=== PATIENT | female | born 1960 | race Caucasian/White ===

== ENCOUNTER 2021-08-26 10:22 | Inpatient (IN) | payer OTHER ==
[2021-08-26] MEDS ORDERED: ONDANSETRON *ODT* 4 MG TABLET SL PRN (10:41)
[2021-08-26] MEDS ORDERED: DICYCLOMINE HCL 10 MG CAPSULE PO PRN (10:41)
[2021-08-26] MEDS ORDERED: LOPERAMIDE HCL 2 MG CAPSULE PO PRN (10:41)
[2021-08-26] MEDS ORDERED: MAG HYDROX/AL HYDROX/SIMETH 30 ML UNIT-DOSE CUP PO PRN (10:41)
[2021-08-26] MEDS ORDERED: ACETAMINOPHEN 325 MG TABLET (FP) PO PRN (10:41)
[2021-08-26] MEDS ORDERED: BENZOCAINE/MENTHOL (CHLORASEPTIC ) LOZENGE MM PRN (10:41)
[2021-08-26] MEDS ORDERED: MAGNESIUM HYDROX 2400MG/30ML ORAL SUSPENSION 30 ML CUP PO PRN (10:41)
[2021-08-26] MEDS ORDERED: NICOTINE 10 MG CARTRIDGE (INHALER) IH PRN (10:41)
[2021-08-26] MEDS ORDERED: BISMUTH SUBSALICYLATE 262 MG/15 ML BTL PO PRN (10:41)
[2021-08-26] MEDS ORDERED: METHOCARBAMOL 500 MG TABLET PO PRN (10:41)
[2021-08-26] MEDS ORDERED: IBUPROFEN 400 MG TABLET (FP) PO PRN (10:41)
[2021-08-26] MEDS ORDERED: diazePAM 5 MG TABLET PO PRN (10:41)
[2021-08-26] MEDS ORDERED: MAGNESIUM CITRATE 300 ML BOTTLE PO PRN (10:41)
[2021-08-26 10:53] VITALS: BMI 24.3
[2021-08-26] MEDS: NICOTINE 14 MG/24 HOURS TOPICAL PATCH TD SCH (13:21)
[2021-08-26] MEDS: hydrOXYzine PAMOATE 25 MG CAPSULE (FP) PO SCH ×3 (13:21→22:06)
[2021-08-26] MEDS: PRENATAL VITAMINS W/ FOLIC ACID TABLET (FP) PO SCH (13:21)
[2021-08-26] MEDS: diazePAM 5 MG TABLET PO SCH ×3 (13:23→22:03)
[2021-08-26 15:13] LABS: ALBUMIN 3.8 g/dl (3.4-5.0); BLOOD UREA NITROGEN 20.6 mg/dL (7-18)
[2021-08-26 15:16] LABS: HEMATOCRIT 32.5 % (32.4-45.2); MCH 29.5 pg (25.7-33.7); MCHC 33.9 g/dl (32.0-36.0); MEAN PLT VOLUME 9.1 fl (7.5-11.1); PLATELET COUNT 268 10^3/uL (134-434); RBC 3.74 M/mm3 (3.60-5.2); RDW 16.7 % (11.6-15.6); WHITE BLOOD COUNT 4.9 K/mm3 (4.0-10.0)
[2021-08-26 15:17] LABS: BILIRUBIN,TOTAL 0.2 mg/dL (0.2-1)
[2021-08-26 15:18] LABS: TOT PROT 7.2 g/dl (6.4-8.2)
[2021-08-26] MEDS: ACETAMINOPHEN 325 MG TABLET (FP) PO PRN (17:48)
[2021-08-26] MEDS ORDERED: LURASIDONE HCL 40 MG TABLET PO SCH (22:00)
[2021-08-26] MEDS: THIAMINE HCL 100 MG TABLET (FP) PO SCH (22:03)
[2021-08-26] MEDS: MELATONIN 5 MG TABLETS PO SCH (22:03)
[2021-08-26] MEDS: DIVALPROEX SODIUM 500 MG TABLET E.C. PO SCH (22:03)
[2021-08-27] MEDS: hydrOXYzine PAMOATE 25 MG CAPSULE (FP) PO SCH ×5 (06:05→21:58)
[2021-08-27] MEDS ORDERED: methaDONE HCL 10 MG TABLET ONE (06:07)
[2021-08-27] MEDS ORDERED: methaDONE HCL 40 MG DISPERSABLE TABLET ONE (06:08)
[2021-08-27] MEDS: diazePAM 5 MG TABLET PO SCH ×4 (06:08→22:00)
[2021-08-27] MEDS ORDERED: methaDONE HCL 40 MG DISPERSABLE TABLET PO SCH (10:00)
[2021-08-27] MEDS ORDERED: busPIRone HCL 10 MG TABLET (FP) PO SCH (10:00)
[2021-08-27] MEDS: PRENATAL VITAMINS W/ FOLIC ACID TABLET (FP) PO SCH (10:52)
[2021-08-27] MEDS: NICOTINE 14 MG/24 HOURS TOPICAL PATCH TD SCH (10:53)
[2021-08-27] MEDS: DIVALPROEX SODIUM 500 MG TABLET E.C. PO SCH (10:56)
[2021-08-27] MEDS: THIAMINE HCL 100 MG TABLET (FP) PO SCH (21:58)
[2021-08-27] MEDS: MELATONIN 5 MG TABLETS PO SCH (21:58)
[2021-08-28] MEDS ORDERED: methaDONE HCL 10 MG TABLET ONE (04:50)
[2021-08-28] MEDS ORDERED: methaDONE HCL 40 MG DISPERSABLE TABLET ONE (04:50)
[2021-08-28] MEDS: diazePAM 5 MG TABLET PO SCH ×3 (05:59→22:13)
[2021-08-28] MEDS: hydrOXYzine PAMOATE 25 MG CAPSULE (FP) PO SCH ×5 (05:59→22:12)
[2021-08-28] MEDS: PRENATAL VITAMINS W/ FOLIC ACID TABLET (FP) PO SCH (10:19)
[2021-08-28] MEDS: NICOTINE 14 MG/24 HOURS TOPICAL PATCH TD SCH (10:19)
[2021-08-28] MEDS: MELATONIN 5 MG TABLETS PO SCH (22:12)
[2021-08-28] MEDS: THIAMINE HCL 100 MG TABLET (FP) PO SCH (22:12)
[2021-08-29] MEDS ORDERED: methaDONE HCL 10 MG TABLET ONE (04:18)
[2021-08-29] MEDS ORDERED: methaDONE HCL 40 MG DISPERSABLE TABLET ONE (04:19)
[2021-08-29] MEDS: hydrOXYzine PAMOATE 25 MG CAPSULE (FP) PO SCH ×5 (05:45→22:10)
[2021-08-29] MEDS: diazePAM 5 MG TABLET PO SCH ×2 (05:47→17:30)
[2021-08-29] MEDS: PRENATAL VITAMINS W/ FOLIC ACID TABLET (FP) PO SCH (10:13)
[2021-08-29] MEDS: NICOTINE 14 MG/24 HOURS TOPICAL PATCH TD SCH (10:14)
[2021-08-29] MEDS: MELATONIN 5 MG TABLETS PO SCH (22:10)
[2021-08-29] MEDS: THIAMINE HCL 100 MG TABLET (FP) PO SCH (22:10)
[2021-08-29] MEDS: ACETAMINOPHEN 325 MG TABLET (FP) PO PRN (22:11)
[2021-08-30] MEDS ORDERED: methaDONE HCL 10 MG TABLET ONE (04:55)
[2021-08-30] MEDS ORDERED: methaDONE HCL 40 MG DISPERSABLE TABLET ONE (04:55)
[2021-08-30] MEDS ORDERED: diazePAM 5 MG TABLET PO ONE (06:00)
[2021-08-30] MEDS: hydrOXYzine PAMOATE 25 MG CAPSULE (FP) PO SCH ×2 (06:03→10:36)
[2021-08-30 08:51] VITALS: BP 125/83; PULSE 100; TEMP 95.9
[2021-08-30] MEDS: PRENATAL VITAMINS W/ FOLIC ACID TABLET (FP) PO SCH (10:36)
[2021-08-30] MEDS: NICOTINE 14 MG/24 HOURS TOPICAL PATCH TD SCH (10:36)
[2021-08-30] MEDS ORDERED: ALBUTEROL SO4 HFA INHALER IH PRN (13:21)
[2021-08-30 16:08] LABS: SARS-CoV-2 NAA Not Detected (Not Detected)
== END 2021-08-30 12:08 | disposition home or self-care (01) | DRG 773 ==
LOC: YASAS 10:22 → Y3N 11:45
PROVIDERS: ADMIT Allergy & Immunology; ATTEND Allergy & Immunology
PROC: HZ2ZZZZ Detoxification Services for Substance Abuse Treatment (ICD-10-PCS; principal; 2021-08-26)
DX: F10.230 Alcohol dependence with withdrawal, uncomplicated (principal); F11.20 Opioid dependence, uncomplicated; F14.20 Cocaine dependence, uncomplicated; F17.210 Nicotine dependence, cigarettes, uncomplicated; F31.9 Bipolar disorder, unspecified; J45.909 Unspecified asthma, uncomplicated; M54.50 Low back pain, unspecified; G89.29 Other chronic pain; Z98.84 Bariatric surgery status; Z98.890 Other specified postprocedural states
CPT/HCPCS: 36415; 80053; 80164; 85027; 86780; 87811; 93005; 93010; C9803-CS; U0003; U0005

== ENCOUNTER 2021-10-26 10:52 | Inpatient (IN) | payer OTHER ==
[2021-10-26 11:29] VITALS: BMI 22.6
[2021-10-26] MEDS ORDERED: ACETAMINOPHEN 325 MG TABLET (FP) PO PRN ×2 (11:54)
[2021-10-26] MEDS ORDERED: DICYCLOMINE HCL 10 MG CAPSULE PO PRN (11:54)
[2021-10-26] MEDS ORDERED: MAGNESIUM CITRATE 300 ML BOTTLE PO PRN (11:54)
[2021-10-26] MEDS ORDERED: IBUPROFEN 400 MG TABLET (FP) PO PRN (11:54)
[2021-10-26] MEDS ORDERED: MAG HYDROX/AL HYDROX/SIMETH 30 ML UNIT-DOSE CUP PO PRN (11:54)
[2021-10-26] MEDS ORDERED: LOPERAMIDE HCL 2 MG CAPSULE PO PRN (11:54)
[2021-10-26] MEDS ORDERED: MAGNESIUM HYDROX 2400MG/30ML ORAL SUSPENSION 30 ML CUP PO PRN (11:54)
[2021-10-26] MEDS ORDERED: BENZOCAINE/MENTHOL (CHLORASEPTIC ) LOZENGE MM PRN (11:54)
[2021-10-26] MEDS ORDERED: METHOCARBAMOL 500 MG TABLET PO PRN (11:54)
[2021-10-26] MEDS ORDERED: BISMUTH SUBSALICYLATE 262 MG/15 ML BTL PO PRN (11:54)
[2021-10-26] MEDS ORDERED: IBUPROFEN 600 MG TABLET (FP) PO PRN (11:54)
[2021-10-26] MEDS ORDERED: ONDANSETRON *ODT* 4 MG TABLET SL PRN (11:54)
[2021-10-26] MEDS: diazePAM 5 MG TABLET PO SCH ×3 (13:11→22:23)
[2021-10-26] MEDS: PRENATAL VITAMINS W/ FOLIC ACID TABLET (FP) PO SCH (13:12)
[2021-10-26] MEDS: NICOTINE 21 MG/24 HOURS TOPICAL PATCH TD SCH (13:13)
[2021-10-26] MEDS: hydrOXYzine PAMOATE 25 MG CAPSULE (FP) PO SCH ×3 (13:13→22:23)
[2021-10-26 15:19] LABS: CALCIUM 8.8 mg/dL (8.5-10.1); HEMOGLOBIN 12.4 GM/dL (10.7-15.3); MCH 28.7 pg (25.7-33.7); MCHC 32.6 g/dl (32.0-36.0); MEAN PLT VOLUME 9.4 fl (7.5-11.1); PLATELET COUNT 258 10^3/uL (134-434); RBC 4.32 M/mm3 (3.60-5.2); RDW 16.2 % (11.6-15.6); WHITE BLOOD COUNT 5.4 K/mm3 (4.0-10.0)
[2021-10-26 15:20] LABS: ALBUMIN 3.9 g/dl (3.4-5.0); BLOOD UREA NITROGEN 13.6 mg/dL (7-18)
[2021-10-26 15:23] LABS: CREATININE 1.1 mg/dL (0.55-1.3)
[2021-10-26 15:24] LABS: BILIRUBIN,TOTAL 0.4 mg/dL (0.2-1); TOT PROT 7.6 g/dl (6.4-8.2)
[2021-10-26] MEDS: THIAMINE HCL 100 MG TABLET (FP) PO SCH (22:23)
[2021-10-26] MEDS: DIVALPROEX SODIUM 500 MG TABLET E.C. PO SCH (22:23)
[2021-10-26] MEDS: MELATONIN 5 MG TABLETS PO SCH (22:23)
[2021-10-26] MEDS: busPIRone HCL 5 MG TABLET PO SCH (22:31)
[2021-10-26] MEDS: LURASIDONE HCL 40 MG TABLET PO SCH (22:31)
[2021-10-27] MEDS: hydrOXYzine PAMOATE 25 MG CAPSULE (FP) PO SCH ×5 (06:12→23:25)
[2021-10-27] MEDS: diazePAM 5 MG TABLET PO SCH ×4 (06:12→22:09)
[2021-10-27] MEDS ORDERED: methaDONE HCL 10 MG TABLET PO SCH (07:45)
[2021-10-27] MEDS ORDERED: methaDONE HCL 40 MG DISPERSABLE TABLET ONE (08:22)
[2021-10-27] MEDS ORDERED: methaDONE HCL 10 MG TABLET ONE (08:22)
[2021-10-27] MEDS: busPIRone HCL 5 MG TABLET PO SCH ×2 (10:03→22:08)
[2021-10-27] MEDS: PRENATAL VITAMINS W/ FOLIC ACID TABLET (FP) PO SCH (10:03)
[2021-10-27] MEDS: DIVALPROEX SODIUM 500 MG TABLET E.C. PO SCH ×2 (10:03→22:08)
[2021-10-27] MEDS: NICOTINE 10 MG CARTRIDGE (INHALER) IH PRN (10:05)
[2021-10-27] MEDS: NICOTINE 21 MG/24 HOURS TOPICAL PATCH TD SCH (10:19)
[2021-10-27] MEDS: diazePAM 5 MG TABLET PO PRN (13:43)
[2021-10-27 15:38] LABS: HIV INTERPRETATION NEGATIVE (NEGATIVE)
[2021-10-27] MEDS: THIAMINE HCL 100 MG TABLET (FP) PO SCH (22:08)
[2021-10-27] MEDS: MELATONIN 5 MG TABLETS PO SCH (22:08)
[2021-10-27] MEDS: LURASIDONE HCL 40 MG TABLET PO SCH (23:51)
[2021-10-28] MEDS ORDERED: methaDONE HCL 10 MG TABLET ONE (04:30)
[2021-10-28] MEDS ORDERED: methaDONE HCL 40 MG DISPERSABLE TABLET ONE (04:30)
[2021-10-28] MEDS: hydrOXYzine PAMOATE 25 MG CAPSULE (FP) PO SCH ×2 (07:04→10:10)
[2021-10-28] MEDS: diazePAM 5 MG TABLET PO SCH ×3 (07:04→22:07)
[2021-10-28] MEDS: DIVALPROEX SODIUM 500 MG TABLET E.C. PO SCH ×2 (10:09→22:06)
[2021-10-28] MEDS: PRENATAL VITAMINS W/ FOLIC ACID TABLET (FP) PO SCH (10:10)
[2021-10-28] MEDS: diazePAM 5 MG TABLET PO PRN ×2 (10:10→17:40)
[2021-10-28] MEDS: NICOTINE 10 MG CARTRIDGE (INHALER) IH PRN (10:17)
[2021-10-28] MEDS: NICOTINE 21 MG/24 HOURS TOPICAL PATCH TD SCH (10:36)
[2021-10-28] MEDS ORDERED: hydrOXYzine PAMOATE 25 MG CAPSULE (FP) PO PRN (11:45)
[2021-10-28] MEDS ORDERED: ALBUTEROL SO4 HFA INHALER IH PRN (11:45)
[2021-10-28] MEDS: busPIRone HCL 5 MG TABLET PO SCH (12:01)
[2021-10-28] MEDS: CARIPRAZINE HCL 6 MG PO SCH (21:19)
[2021-10-28] MEDS: THIAMINE HCL 100 MG TABLET (FP) PO SCH (22:05)
[2021-10-28] MEDS: LURASIDONE HCL 40 MG TABLET PO SCH (22:06)
[2021-10-28] MEDS: busPIRone HCL 10 MG TABLET (FP) PO SCH (22:06)
[2021-10-28] MEDS: MELATONIN 5 MG TABLETS PO SCH (22:07)
[2021-10-29] MEDS ORDERED: methaDONE HCL 10 MG TABLET ONE (05:19)
[2021-10-29] MEDS ORDERED: methaDONE HCL 40 MG DISPERSABLE TABLET ONE (05:19)
[2021-10-29] MEDS: diazePAM 5 MG TABLET PO SCH ×2 (05:44→17:29)
[2021-10-29] MEDS: busPIRone HCL 10 MG TABLET (FP) PO SCH ×3 (07:17→22:30)
[2021-10-29] MEDS: DIVALPROEX SODIUM 500 MG TABLET E.C. PO SCH ×2 (10:30→22:30)
[2021-10-29] MEDS: PRENATAL VITAMINS W/ FOLIC ACID TABLET (FP) PO SCH (10:30)
[2021-10-29] MEDS: diazePAM 5 MG TABLET PO PRN (10:31)
[2021-10-29] MEDS: NICOTINE 21 MG/24 HOURS TOPICAL PATCH TD SCH (11:07)
[2021-10-29] MEDS: CARIPRAZINE HCL 6 MG PO SCH (11:09)
[2021-10-29] MEDS ORDERED: LURASIDONE HCL 20 MG, LURASIDONE HCL 40 MG PO SCH (22:00)
[2021-10-29] MEDS ORDERED: LURASIDONE HCL 40 MG TABLET PO SCH (22:00)
[2021-10-29] MEDS: THIAMINE HCL 100 MG TABLET (FP) PO SCH (22:30)
[2021-10-29] MEDS: MELATONIN 5 MG TABLETS PO SCH (22:32)
[2021-10-30] MEDS ORDERED: methaDONE HCL 10 MG TABLET ONE (04:21)
[2021-10-30] MEDS ORDERED: methaDONE HCL 40 MG DISPERSABLE TABLET ONE (04:21)
[2021-10-30] MEDS: busPIRone HCL 10 MG TABLET (FP) PO SCH ×2 (05:04→13:27)
[2021-10-30] MEDS ORDERED: diazePAM 5 MG TABLET PO ONE (06:00)
[2021-10-30] MEDS: DIVALPROEX SODIUM 500 MG TABLET E.C. PO SCH (10:54)
[2021-10-30] MEDS: NICOTINE 21 MG/24 HOURS TOPICAL PATCH TD SCH (10:54)
[2021-10-30] MEDS: PRENATAL VITAMINS W/ FOLIC ACID TABLET (FP) PO SCH (10:55)
[2021-10-30 13:25] VITALS: BP 105/63; PULSE 73; TEMP 98.9
== END 2021-10-30 15:25 | disposition other institution (70) | DRG 773 ==
LOC: YASAS 10:52 → Y3N 11:57
PROVIDERS: ADMIT Allergy & Immunology; ATTEND Surgery
PROC: HZ2ZZZZ Detoxification Services for Substance Abuse Treatment (ICD-10-PCS; principal; 2021-10-26)
DX: F10.230 Alcohol dependence with withdrawal, uncomplicated (principal); F11.20 Opioid dependence, uncomplicated; F14.20 Cocaine dependence, uncomplicated; F17.210 Nicotine dependence, cigarettes, uncomplicated; F31.9 Bipolar disorder, unspecified; J45.909 Unspecified asthma, uncomplicated; M54.50 Low back pain, unspecified; G89.29 Other chronic pain; R73.9 Hyperglycemia, unspecified
CPT/HCPCS: 36415; 80053; 80164; 85027; 86780; 87389; 87811; C9803-CS; U0003; U0005

== ENCOUNTER 2021-10-30 09:11 | Inpatient (IN) | payer OTHER ==
[2021-10-30] MEDS ORDERED: IBUPROFEN 400 MG TABLET (FP) PO PRN (18:42)
[2021-10-30] MEDS ORDERED: guaiFENesin 200 MG/10 ML 10 ML UNIT-DOSE CUPS PO PRN (18:42)
[2021-10-30] MEDS ORDERED: BENZOCAINE/MENTHOL (CHLORASEPTIC ) LOZENGE MM PRN (18:42)
[2021-10-30] MEDS ORDERED: LOPERAMIDE HCL 2 MG CAPSULE PO PRN (18:42)
[2021-10-30] MEDS ORDERED: P-EPHED 60MG/TRIPROLIDI 2.5MG TABLET PO PRN (18:42)
[2021-10-30] MEDS ORDERED: MAGNESIUM CITRATE 300 ML BOTTLE PO PRN (18:42)
[2021-10-30] MEDS: THIAMINE HCL 100 MG TABLET (FP) PO SCH (21:05)
[2021-10-30] MEDS: MELATONIN 5 MG TABLETS PO SCH (21:05)
[2021-10-30] MEDS: DIVALPROEX SODIUM 500 MG TABLET E.C. PO SCH (21:06)
[2021-10-31] MEDS ORDERED: MELATONIN 5 MG TABLETS PO ONE (00:45)
[2021-10-31] MEDS ORDERED: methaDONE HCL 10 MG TABLET ONE ×2 (04:02→08:51)
[2021-10-31] MEDS ORDERED: methaDONE HCL 40 MG DISPERSABLE TABLET ONE ×2 (04:03→08:52)
[2021-10-31] MEDS ORDERED: methaDONE 40 MG, methaDONE 30 MG PO SCH (06:00)
[2021-10-31] MEDS ORDERED: methaDONE HCL 10 MG TABLET PO ONE (08:27)
[2021-10-31] MEDS ORDERED: methaDONE 40 MG, methaDONE 30 MG PO ONE (08:40)
[2021-10-31] MEDS: PRENATAL VITAMINS W/ FOLIC ACID TABLET (FP) PO SCH (09:40)
[2021-10-31] MEDS: NICOTINE 21 MG/24 HOURS TOPICAL PATCH TD SCH (09:41)
[2021-10-31] MEDS: DIVALPROEX SODIUM 500 MG TABLET E.C. PO SCH ×2 (09:41→21:06)
[2021-10-31] MEDS: NICOTINE 10 MG CARTRIDGE (INHALER) IH PRN ×2 (09:41→12:56)
[2021-10-31] MEDS: busPIRone HCL 5 MG TABLET PO SCH ×2 (13:31→21:06)
[2021-10-31] MEDS: THIAMINE HCL 100 MG TABLET (FP) PO SCH (21:06)
[2021-10-31] MEDS: LURASIDONE HCL 20 MG TABLET PO SCH (21:06)
[2021-10-31] MEDS: MELATONIN 5 MG TABLETS PO SCH (21:07)
[2021-11-01] MEDS ORDERED: methaDONE HCL 10 MG TABLET ONE (04:01)
[2021-11-01] MEDS ORDERED: methaDONE HCL 40 MG DISPERSABLE TABLET ONE (04:02)
[2021-11-01] MEDS: busPIRone HCL 5 MG TABLET PO SCH ×3 (05:54→21:46)
[2021-11-01] MEDS ORDERED: methaDONE HCL 10 MG TABLET PO SCH (06:00)
[2021-11-01] MEDS: NICOTINE 21 MG/24 HOURS TOPICAL PATCH TD SCH (10:06)
[2021-11-01] MEDS: PRENATAL VITAMINS W/ FOLIC ACID TABLET (FP) PO SCH (10:06)
[2021-11-01] MEDS: NICOTINE 10 MG CARTRIDGE (INHALER) IH PRN (10:07)
[2021-11-01] MEDS: DIVALPROEX SODIUM 500 MG TABLET E.C. PO SCH ×2 (10:07→21:46)
[2021-11-01] MEDS: MELATONIN 5 MG TABLETS PO SCH (21:46)
[2021-11-01] MEDS: THIAMINE HCL 100 MG TABLET (FP) PO SCH (21:46)
[2021-11-01] MEDS: LURASIDONE HCL 20 MG TABLET PO SCH (21:47)
[2021-11-02] MEDS ORDERED: methaDONE HCL 40 MG DISPERSABLE TABLET ONE (04:12)
[2021-11-02] MEDS ORDERED: methaDONE HCL 10 MG TABLET ONE (04:12)
[2021-11-02] MEDS: busPIRone HCL 5 MG TABLET PO SCH ×3 (06:03→21:15)
[2021-11-02] MEDS: NICOTINE 10 MG CARTRIDGE (INHALER) IH PRN ×2 (07:00→10:19)
[2021-11-02] MEDS: DIVALPROEX SODIUM 500 MG TABLET E.C. PO SCH ×2 (10:18→21:15)
[2021-11-02] MEDS: NICOTINE 21 MG/24 HOURS TOPICAL PATCH TD SCH (10:18)
[2021-11-02] MEDS: PRENATAL VITAMINS W/ FOLIC ACID TABLET (FP) PO SCH (10:18)
[2021-11-02] MEDS: LURASIDONE HCL 20 MG TABLET PO SCH (21:15)
[2021-11-02] MEDS: THIAMINE HCL 100 MG TABLET (FP) PO SCH (21:15)
[2021-11-02] MEDS: MELATONIN 5 MG TABLETS PO SCH (21:15)
[2021-11-03] MEDS ORDERED: methaDONE HCL 10 MG TABLET ONE (03:19)
[2021-11-03] MEDS ORDERED: methaDONE HCL 40 MG DISPERSABLE TABLET ONE (03:19)
[2021-11-03] MEDS: busPIRone HCL 5 MG TABLET PO SCH ×3 (05:42→21:09)
[2021-11-03] MEDS: NICOTINE 21 MG/24 HOURS TOPICAL PATCH TD SCH (10:41)
[2021-11-03] MEDS: PRENATAL VITAMINS W/ FOLIC ACID TABLET (FP) PO SCH (10:41)
[2021-11-03] MEDS: DIVALPROEX SODIUM 500 MG TABLET E.C. PO SCH ×2 (10:42→21:08)
[2021-11-03] MEDS: ACETAMINOPHEN 325 MG TABLET (FP) PO PRN (10:43)
[2021-11-03] MEDS: METHOCARBAMOL 500 MG TABLET PO PRN (21:08)
[2021-11-03] MEDS: THIAMINE HCL 100 MG TABLET (FP) PO SCH (21:08)
[2021-11-03] MEDS: LURASIDONE HCL 20 MG TABLET PO SCH (21:09)
[2021-11-03] MEDS: MELATONIN 5 MG TABLETS PO SCH (21:10)
[2021-11-03] MEDS: NICOTINE 10 MG CARTRIDGE (INHALER) IH PRN (21:10)
[2021-11-04] MEDS ORDERED: methaDONE HCL 40 MG DISPERSABLE TABLET ONE (04:08)
[2021-11-04] MEDS ORDERED: methaDONE HCL 10 MG TABLET ONE (04:08)
[2021-11-04] MEDS: busPIRone HCL 5 MG TABLET PO SCH ×3 (05:42→21:05)
[2021-11-04] MEDS: NICOTINE 21 MG/24 HOURS TOPICAL PATCH TD SCH (10:33)
[2021-11-04] MEDS: PRENATAL VITAMINS W/ FOLIC ACID TABLET (FP) PO SCH (10:33)
[2021-11-04] MEDS: DIVALPROEX SODIUM 500 MG TABLET E.C. PO SCH ×2 (10:33→21:05)
[2021-11-04] MEDS: NICOTINE 10 MG CARTRIDGE (INHALER) IH PRN (10:35)
[2021-11-04] MEDS: THIAMINE HCL 100 MG TABLET (FP) PO SCH (21:05)
[2021-11-04] MEDS: LURASIDONE HCL 20 MG TABLET PO SCH (21:06)
[2021-11-04] MEDS: METHOCARBAMOL 500 MG TABLET PO PRN (21:07)
[2021-11-04] MEDS: MELATONIN 5 MG TABLETS PO SCH (21:43)
[2021-11-05] MEDS ORDERED: methaDONE HCL 40 MG DISPERSABLE TABLET ONE (04:01)
[2021-11-05] MEDS ORDERED: methaDONE HCL 10 MG TABLET ONE (04:01)
[2021-11-05] MEDS: busPIRone HCL 5 MG TABLET PO SCH ×3 (05:54→21:47)
[2021-11-05] MEDS: NICOTINE 10 MG CARTRIDGE (INHALER) IH PRN (06:40)
[2021-11-05] MEDS: DIVALPROEX SODIUM 500 MG TABLET E.C. PO SCH ×2 (10:33→21:47)
[2021-11-05] MEDS: PRENATAL VITAMINS W/ FOLIC ACID TABLET (FP) PO SCH (10:34)
[2021-11-05] MEDS: ACETAMINOPHEN 325 MG TABLET (FP) PO PRN (10:34)
[2021-11-05] MEDS: NICOTINE 21 MG/24 HOURS TOPICAL PATCH TD SCH (11:05)
[2021-11-05] MEDS: MELATONIN 5 MG TABLETS PO SCH (21:47)
[2021-11-05] MEDS: LURASIDONE HCL 20 MG TABLET PO SCH (21:48)
[2021-11-05] MEDS: THIAMINE HCL 100 MG TABLET (FP) PO SCH (21:49)
[2021-11-05] MEDS: hydrOXYzine PAMOATE 25 MG CAPSULE (FP) PO PRN (21:50)
[2021-11-06] MEDS ORDERED: methaDONE HCL 10 MG TABLET ONE (03:26)
[2021-11-06] MEDS ORDERED: methaDONE HCL 40 MG DISPERSABLE TABLET ONE (03:26)
[2021-11-06] MEDS: busPIRone HCL 5 MG TABLET PO SCH ×3 (06:00→22:11)
[2021-11-06] MEDS: NICOTINE 10 MG CARTRIDGE (INHALER) IH PRN ×2 (06:18→10:42)
[2021-11-06] MEDS: NICOTINE 21 MG/24 HOURS TOPICAL PATCH TD SCH (10:41)
[2021-11-06] MEDS: PRENATAL VITAMINS W/ FOLIC ACID TABLET (FP) PO SCH (10:41)
[2021-11-06] MEDS: DIVALPROEX SODIUM 500 MG TABLET E.C. PO SCH ×2 (10:41→22:11)
[2021-11-06] MEDS: THIAMINE HCL 100 MG TABLET (FP) PO SCH (22:11)
[2021-11-06] MEDS: MELATONIN 5 MG TABLETS PO SCH (22:11)
[2021-11-06] MEDS: LURASIDONE HCL 20 MG TABLET PO SCH (22:12)
[2021-11-06] MEDS: hydrOXYzine PAMOATE 25 MG CAPSULE (FP) PO PRN (22:12)
[2021-11-06] MEDS: METHOCARBAMOL 500 MG TABLET PO PRN (22:13)
[2021-11-07] MEDS ORDERED: methaDONE HCL 10 MG TABLET ONE (03:26)
[2021-11-07] MEDS ORDERED: methaDONE HCL 40 MG DISPERSABLE TABLET ONE (03:27)
[2021-11-07] MEDS: busPIRone HCL 5 MG TABLET PO SCH ×3 (05:41→21:18)
[2021-11-07] MEDS: NICOTINE 21 MG/24 HOURS TOPICAL PATCH TD SCH (10:31)
[2021-11-07] MEDS: DIVALPROEX SODIUM 500 MG TABLET E.C. PO SCH ×2 (10:31→21:18)
[2021-11-07] MEDS: PRENATAL VITAMINS W/ FOLIC ACID TABLET (FP) PO SCH (10:31)
[2021-11-07 15:48] LABS: URINE APPEARANCE CLEAR; URINE BILIRUBIN NEGATIVE (NEGATIVE); URINE COLOR YELLOW; URINE GLUCOSE (UA) NEGATIVE (NEGATIVE); URINE KETONE NEGATIVE (NEGATIVE); URINE NITRITE NEGATIVE (NEGATIVE); URINE PROTEIN NEGATIVE (NEGATIVE); URINE UROBILINOGEN 0.2 mg/dL (0.2-1.0)
[2021-11-07 15:49] LABS: URINE LEUK ESTERASE 1+ (NEGATIVE)
[2021-11-07] MEDS: metroNIDAZOLE 250 MG TABLET PO SCH ×2 (15:58→21:18)
[2021-11-07] MEDS: METHOCARBAMOL 500 MG TABLET PO PRN (21:18)
[2021-11-07] MEDS: THIAMINE HCL 100 MG TABLET (FP) PO SCH (21:18)
[2021-11-07] MEDS: LURASIDONE HCL 20 MG TABLET PO SCH (21:33)
[2021-11-07] MEDS: MELATONIN 5 MG TABLETS PO SCH (21:33)
[2021-11-08] MEDS: busPIRone HCL 5 MG TABLET PO SCH ×3 (06:28→21:21)
[2021-11-08] MEDS ORDERED: methaDONE HCL 40 MG DISPERSABLE TABLET ONE (06:28)
[2021-11-08] MEDS: metroNIDAZOLE 250 MG TABLET PO SCH ×3 (06:28→21:22)
[2021-11-08] MEDS ORDERED: methaDONE HCL 10 MG TABLET ONE (06:28)
[2021-11-08] MEDS: NICOTINE 10 MG CARTRIDGE (INHALER) IH PRN (06:51)
[2021-11-08] MEDS: NICOTINE 21 MG/24 HOURS TOPICAL PATCH TD SCH (10:21)
[2021-11-08] MEDS: PRENATAL VITAMINS W/ FOLIC ACID TABLET (FP) PO SCH (10:21)
[2021-11-08] MEDS: DIVALPROEX SODIUM 500 MG TABLET E.C. PO SCH ×2 (10:21→21:21)
[2021-11-08] MEDS: THIAMINE HCL 100 MG TABLET (FP) PO SCH (21:21)
[2021-11-08] MEDS: hydrOXYzine PAMOATE 25 MG CAPSULE (FP) PO PRN (21:21)
[2021-11-08] MEDS: LURASIDONE HCL 20 MG TABLET PO SCH (21:24)
[2021-11-08] MEDS: MELATONIN 5 MG TABLETS PO SCH (21:25)
[2021-11-08] MEDS: ALBUTEROL SO4 HFA INHALER IH PRN (21:25)
[2021-11-09] MEDS ORDERED: methaDONE HCL 10 MG TABLET ONE (04:27)
[2021-11-09] MEDS ORDERED: methaDONE HCL 40 MG DISPERSABLE TABLET ONE (04:27)
[2021-11-09] MEDS: metroNIDAZOLE 250 MG TABLET PO SCH ×3 (05:45→21:04)
[2021-11-09] MEDS: busPIRone HCL 5 MG TABLET PO SCH ×3 (05:45→21:04)
[2021-11-09] MEDS: NICOTINE 10 MG CARTRIDGE (INHALER) IH PRN ×2 (05:45→10:20)
[2021-11-09] MEDS: PRENATAL VITAMINS W/ FOLIC ACID TABLET (FP) PO SCH (10:19)
[2021-11-09] MEDS: DIVALPROEX SODIUM 500 MG TABLET E.C. PO SCH ×2 (10:20→21:04)
[2021-11-09] MEDS: NICOTINE 21 MG/24 HOURS TOPICAL PATCH TD SCH (10:20)
[2021-11-09] MEDS: METHOCARBAMOL 500 MG TABLET PO PRN (21:04)
[2021-11-09] MEDS: THIAMINE HCL 100 MG TABLET (FP) PO SCH (21:04)
[2021-11-09] MEDS: LURASIDONE HCL 20 MG TABLET PO SCH (21:04)
[2021-11-09] MEDS: MELATONIN 5 MG TABLETS PO SCH (21:05)
[2021-11-09] MEDS: MAGNESIUM HYDROX 2400MG/30ML ORAL SUSPENSION 30 ML CUP PO PRN (21:06)
[2021-11-10] MEDS ORDERED: methaDONE HCL 40 MG DISPERSABLE TABLET ONE (03:14)
[2021-11-10] MEDS ORDERED: methaDONE HCL 10 MG TABLET ONE (03:14)
[2021-11-10] MEDS: busPIRone HCL 5 MG TABLET PO SCH ×3 (05:51→21:18)
[2021-11-10] MEDS: metroNIDAZOLE 250 MG TABLET PO SCH ×3 (05:51→21:18)
[2021-11-10] MEDS: NICOTINE 10 MG CARTRIDGE (INHALER) IH PRN (07:03)
[2021-11-10] MEDS: PRENATAL VITAMINS W/ FOLIC ACID TABLET (FP) PO SCH (10:34)
[2021-11-10] MEDS: NICOTINE 21 MG/24 HOURS TOPICAL PATCH TD SCH (10:35)
[2021-11-10] MEDS: DIVALPROEX SODIUM 500 MG TABLET E.C. PO SCH ×2 (10:35→21:18)
[2021-11-10] MEDS: MAGNESIUM HYDROX 2400MG/30ML ORAL SUSPENSION 30 ML CUP PO PRN (10:36)
[2021-11-10] MEDS: hydrOXYzine PAMOATE 25 MG CAPSULE (FP) PO PRN (21:18)
[2021-11-10] MEDS: THIAMINE HCL 100 MG TABLET (FP) PO SCH (21:18)
[2021-11-10] MEDS: METHOCARBAMOL 500 MG TABLET PO PRN (21:18)
[2021-11-10] MEDS: LURASIDONE HCL 20 MG TABLET PO SCH (21:18)
[2021-11-10] MEDS: MELATONIN 5 MG TABLETS PO SCH (21:18)
[2021-11-10] MEDS: ALBUTEROL SO4 HFA INHALER IH PRN (21:23)
[2021-11-11] MEDS ORDERED: methaDONE HCL 10 MG TABLET ONE (03:42)
[2021-11-11] MEDS ORDERED: methaDONE HCL 40 MG DISPERSABLE TABLET ONE (03:42)
[2021-11-11] MEDS: NICOTINE 10 MG CARTRIDGE (INHALER) IH PRN ×2 (06:16→10:19)
[2021-11-11] MEDS: busPIRone HCL 5 MG TABLET PO SCH ×3 (06:17→21:04)
[2021-11-11] MEDS: metroNIDAZOLE 250 MG TABLET PO SCH ×3 (06:17→21:05)
[2021-11-11] MEDS: PRENATAL VITAMINS W/ FOLIC ACID TABLET (FP) PO SCH (10:19)
[2021-11-11] MEDS: DIVALPROEX SODIUM 500 MG TABLET E.C. PO SCH ×2 (10:19→21:05)
[2021-11-11] MEDS: NICOTINE 21 MG/24 HOURS TOPICAL PATCH TD SCH (10:19)
[2021-11-11] MEDS: ALBUTEROL SO4 HFA INHALER IH PRN (21:04)
[2021-11-11] MEDS: THIAMINE HCL 100 MG TABLET (FP) PO SCH (21:06)
[2021-11-11] MEDS: hydrOXYzine PAMOATE 25 MG CAPSULE (FP) PO PRN (21:06)
[2021-11-11] MEDS: MELATONIN 5 MG TABLETS PO SCH (21:06)
[2021-11-11] MEDS: LURASIDONE HCL 40 MG, LURASIDONE HCL 20 MG PO SCH (21:07)
[2021-11-12] MEDS ORDERED: methaDONE HCL 10 MG TABLET ONE (04:07)
[2021-11-12] MEDS ORDERED: methaDONE HCL 40 MG DISPERSABLE TABLET ONE (04:08)
[2021-11-12] MEDS: busPIRone HCL 5 MG TABLET PO SCH ×3 (06:20→21:21)
[2021-11-12] MEDS: metroNIDAZOLE 250 MG TABLET PO SCH ×3 (06:20→21:21)
[2021-11-12] MEDS: DIVALPROEX SODIUM 500 MG TABLET E.C. PO SCH ×2 (10:54→21:21)
[2021-11-12] MEDS: PRENATAL VITAMINS W/ FOLIC ACID TABLET (FP) PO SCH (10:54)
[2021-11-12] MEDS: NICOTINE 21 MG/24 HOURS TOPICAL PATCH TD SCH (10:54)
[2021-11-12] MEDS: NICOTINE 10 MG CARTRIDGE (INHALER) IH PRN (10:55)
[2021-11-12] MEDS: LURASIDONE HCL 40 MG, LURASIDONE HCL 20 MG PO SCH (21:21)
[2021-11-12] MEDS: THIAMINE HCL 100 MG TABLET (FP) PO SCH (21:21)
[2021-11-12] MEDS: MELATONIN 5 MG TABLETS PO SCH (21:21)
[2021-11-12] MEDS: hydrOXYzine PAMOATE 25 MG CAPSULE (FP) PO PRN (21:22)
[2021-11-12] MEDS: ALBUTEROL SO4 HFA INHALER IH PRN (21:23)
[2021-11-13] MEDS ORDERED: methaDONE HCL 10 MG TABLET ONE (04:11)
[2021-11-13] MEDS ORDERED: methaDONE HCL 40 MG DISPERSABLE TABLET ONE (04:12)
[2021-11-13] MEDS: metroNIDAZOLE 250 MG TABLET PO SCH ×3 (06:13→21:23)
[2021-11-13] MEDS: busPIRone HCL 5 MG TABLET PO SCH ×3 (06:13→21:22)
[2021-11-13] MEDS: NICOTINE 10 MG CARTRIDGE (INHALER) IH PRN (06:47)
[2021-11-13] MEDS: PRENATAL VITAMINS W/ FOLIC ACID TABLET (FP) PO SCH (10:49)
[2021-11-13] MEDS: DIVALPROEX SODIUM 500 MG TABLET E.C. PO SCH ×2 (10:49→21:22)
[2021-11-13] MEDS: NICOTINE 21 MG/24 HOURS TOPICAL PATCH TD SCH (10:49)
[2021-11-13] MEDS: ALBUTEROL SO4 HFA INHALER IH PRN (21:21)
[2021-11-13] MEDS: THIAMINE HCL 100 MG TABLET (FP) PO SCH (21:22)
[2021-11-13] MEDS: LURASIDONE HCL 40 MG, LURASIDONE HCL 20 MG PO SCH (21:23)
[2021-11-13] MEDS: METHOCARBAMOL 500 MG TABLET PO PRN (21:23)
[2021-11-13] MEDS: MELATONIN 5 MG TABLETS PO SCH (21:23)
[2021-11-13] MEDS: hydrOXYzine PAMOATE 25 MG CAPSULE (FP) PO PRN (21:24)
[2021-11-14] MEDS ORDERED: methaDONE HCL 10 MG TABLET ONE (03:59)
[2021-11-14] MEDS ORDERED: methaDONE HCL 40 MG DISPERSABLE TABLET ONE (03:59)
[2021-11-14] MEDS: metroNIDAZOLE 250 MG TABLET PO SCH (06:12)
[2021-11-14] MEDS: busPIRone HCL 5 MG TABLET PO SCH ×3 (06:12→21:22)
[2021-11-14] MEDS: DIVALPROEX SODIUM 500 MG TABLET E.C. PO SCH ×2 (10:30→21:22)
[2021-11-14] MEDS: PRENATAL VITAMINS W/ FOLIC ACID TABLET (FP) PO SCH (10:30)
[2021-11-14] MEDS: NICOTINE 21 MG/24 HOURS TOPICAL PATCH TD SCH (10:30)
[2021-11-14] MEDS: NICOTINE 10 MG CARTRIDGE (INHALER) IH PRN (14:24)
[2021-11-14] MEDS: THIAMINE HCL 100 MG TABLET (FP) PO SCH (21:22)
[2021-11-14] MEDS: LURASIDONE HCL 40 MG, LURASIDONE HCL 20 MG PO SCH (21:22)
[2021-11-14] MEDS: METHOCARBAMOL 500 MG TABLET PO PRN (21:22)
[2021-11-14] MEDS: MELATONIN 5 MG TABLETS PO SCH (21:23)
[2021-11-14] MEDS: hydrOXYzine PAMOATE 25 MG CAPSULE (FP) PO PRN (21:25)
[2021-11-15] MEDS ORDERED: methaDONE HCL 10 MG TABLET ONE (04:02)
[2021-11-15] MEDS ORDERED: methaDONE HCL 40 MG DISPERSABLE TABLET ONE (04:02)
[2021-11-15] MEDS: busPIRone HCL 5 MG TABLET PO SCH ×3 (05:47→21:45)
[2021-11-15] MEDS: DIVALPROEX SODIUM 500 MG TABLET E.C. PO SCH ×2 (10:40→21:44)
[2021-11-15] MEDS: NICOTINE 21 MG/24 HOURS TOPICAL PATCH TD SCH (10:40)
[2021-11-15] MEDS: PRENATAL VITAMINS W/ FOLIC ACID TABLET (FP) PO SCH (10:40)
[2021-11-15] MEDS: NICOTINE 10 MG CARTRIDGE (INHALER) IH PRN (10:41)
[2021-11-15] MEDS ORDERED: PNEUMOC 20-VAL CONJ-DIP CRM/PF 0.5 ML SYRINGE IM ONE (12:00)
[2021-11-15] MEDS: THIAMINE HCL 100 MG TABLET (FP) PO SCH (21:44)
[2021-11-15] MEDS: ALBUTEROL SO4 HFA INHALER IH PRN (21:44)
[2021-11-15] MEDS: METHOCARBAMOL 500 MG TABLET PO PRN (21:44)
[2021-11-15] MEDS: LURASIDONE HCL 40 MG, LURASIDONE HCL 20 MG PO SCH (21:45)
[2021-11-15] MEDS: hydrOXYzine PAMOATE 25 MG CAPSULE (FP) PO PRN (21:45)
[2021-11-15] MEDS: MELATONIN 5 MG TABLETS PO SCH (21:45)
[2021-11-16] MEDS ORDERED: methaDONE HCL 10 MG TABLET ONE (04:06)
[2021-11-16] MEDS ORDERED: methaDONE HCL 40 MG DISPERSABLE TABLET ONE (04:07)
[2021-11-16] MEDS: busPIRone HCL 5 MG TABLET PO SCH ×3 (05:38→21:10)
[2021-11-16] MEDS: PRENATAL VITAMINS W/ FOLIC ACID TABLET (FP) PO SCH (10:13)
[2021-11-16] MEDS: DIVALPROEX SODIUM 500 MG TABLET E.C. PO SCH ×2 (10:13→21:10)
[2021-11-16] MEDS: NICOTINE 21 MG/24 HOURS TOPICAL PATCH TD SCH (10:15)
[2021-11-16] MEDS: METHOCARBAMOL 500 MG TABLET PO PRN (21:10)
[2021-11-16] MEDS: hydrOXYzine PAMOATE 25 MG CAPSULE (FP) PO PRN (21:10)
[2021-11-16] MEDS: THIAMINE HCL 100 MG TABLET (FP) PO SCH (21:10)
[2021-11-16] MEDS: MELATONIN 5 MG TABLETS PO SCH (21:10)
[2021-11-16] MEDS: LURASIDONE HCL 40 MG, LURASIDONE HCL 20 MG PO SCH (21:14)
[2021-11-16] MEDS: MAG HYDROX/AL HYDROX/SIMETH 30 ML UNIT-DOSE CUP PO PRN (21:15)
[2021-11-16] MEDS: ALBUTEROL SO4 HFA INHALER IH PRN (21:15)
[2021-11-17] MEDS ORDERED: methaDONE HCL 40 MG DISPERSABLE TABLET ONE (02:52)
[2021-11-17] MEDS ORDERED: methaDONE HCL 10 MG TABLET ONE (02:52)
[2021-11-17] MEDS: busPIRone HCL 5 MG TABLET PO SCH ×3 (05:51→21:56)
[2021-11-17] MEDS: NICOTINE 10 MG CARTRIDGE (INHALER) IH PRN ×2 (06:45→10:44)
[2021-11-17] MEDS: MAG HYDROX/AL HYDROX/SIMETH 30 ML UNIT-DOSE CUP PO PRN (08:28)
[2021-11-17] MEDS: DIVALPROEX SODIUM 500 MG TABLET E.C. PO SCH ×2 (10:43→21:56)
[2021-11-17] MEDS: PRENATAL VITAMINS W/ FOLIC ACID TABLET (FP) PO SCH (10:43)
[2021-11-17] MEDS: NICOTINE 21 MG/24 HOURS TOPICAL PATCH TD SCH (10:43)
[2021-11-17] MEDS: METHOCARBAMOL 500 MG TABLET PO PRN (21:56)
[2021-11-17] MEDS: THIAMINE HCL 100 MG TABLET (FP) PO SCH (21:56)
[2021-11-17] MEDS: LURASIDONE HCL 40 MG, LURASIDONE HCL 20 MG PO SCH (21:56)
[2021-11-17] MEDS: hydrOXYzine PAMOATE 25 MG CAPSULE (FP) PO PRN (21:56)
[2021-11-17] MEDS: MELATONIN 5 MG TABLETS PO SCH (21:57)
[2021-11-17] MEDS: ALBUTEROL SO4 HFA INHALER IH PRN (21:58)
[2021-11-18] MEDS ORDERED: methaDONE HCL 10 MG TABLET ONE (03:19)
[2021-11-18] MEDS ORDERED: methaDONE HCL 40 MG DISPERSABLE TABLET ONE (03:20)
[2021-11-18] MEDS: busPIRone HCL 5 MG TABLET PO SCH ×3 (06:02→21:23)
[2021-11-18] MEDS: PRENATAL VITAMINS W/ FOLIC ACID TABLET (FP) PO SCH (10:18)
[2021-11-18] MEDS: DIVALPROEX SODIUM 500 MG TABLET E.C. PO SCH ×2 (10:18→21:23)
[2021-11-18] MEDS: NICOTINE 21 MG/24 HOURS TOPICAL PATCH TD SCH (10:18)
[2021-11-18] MEDS: NICOTINE 10 MG CARTRIDGE (INHALER) IH PRN (13:31)
[2021-11-18] MEDS: hydrOXYzine PAMOATE 25 MG CAPSULE (FP) PO PRN (21:23)
[2021-11-18] MEDS: THIAMINE HCL 100 MG TABLET (FP) PO SCH (21:23)
[2021-11-18] MEDS: ALBUTEROL SO4 HFA INHALER IH PRN (21:23)
[2021-11-18] MEDS: MELATONIN 5 MG TABLETS PO SCH (21:24)
[2021-11-18] MEDS: LURASIDONE HCL 40 MG, LURASIDONE HCL 20 MG PO SCH (21:24)
[2021-11-19] MEDS ORDERED: methaDONE HCL 40 MG DISPERSABLE TABLET ONE (03:53)
[2021-11-19] MEDS ORDERED: methaDONE HCL 10 MG TABLET ONE (03:53)
[2021-11-19] MEDS: busPIRone HCL 5 MG TABLET PO SCH ×3 (05:44→21:51)
[2021-11-19] MEDS: PRENATAL VITAMINS W/ FOLIC ACID TABLET (FP) PO SCH (10:41)
[2021-11-19] MEDS: DIVALPROEX SODIUM 500 MG TABLET E.C. PO SCH ×2 (10:41→21:51)
[2021-11-19] MEDS: NICOTINE 21 MG/24 HOURS TOPICAL PATCH TD SCH (10:42)
[2021-11-19] MEDS: THIAMINE HCL 100 MG TABLET (FP) PO SCH (21:51)
[2021-11-19] MEDS: MELATONIN 5 MG TABLETS PO SCH (21:52)
[2021-11-19] MEDS: hydrOXYzine PAMOATE 25 MG CAPSULE (FP) PO PRN (21:52)
[2021-11-19] MEDS: LURASIDONE HCL 40 MG, LURASIDONE HCL 20 MG PO SCH (21:54)
[2021-11-19] MEDS: METHOCARBAMOL 500 MG TABLET PO PRN (21:55)
[2021-11-19] MEDS: ALBUTEROL SO4 HFA INHALER IH PRN (21:55)
[2021-11-20] MEDS ORDERED: methaDONE HCL 10 MG TABLET ONE (05:36)
[2021-11-20] MEDS ORDERED: methaDONE HCL 40 MG DISPERSABLE TABLET ONE (05:36)
[2021-11-20] MEDS: busPIRone HCL 5 MG TABLET PO SCH ×3 (06:01→22:09)
[2021-11-20] MEDS: MAG HYDROX/AL HYDROX/SIMETH 30 ML UNIT-DOSE CUP PO PRN (06:41)
[2021-11-20 07:38] VITALS: PULSE 62
[2021-11-20] MEDS: PRENATAL VITAMINS W/ FOLIC ACID TABLET (FP) PO SCH (10:42)
[2021-11-20] MEDS: DIVALPROEX SODIUM 500 MG TABLET E.C. PO SCH ×2 (10:43→22:09)
[2021-11-20] MEDS: NICOTINE 21 MG/24 HOURS TOPICAL PATCH TD SCH (10:43)
[2021-11-20] MEDS: THIAMINE HCL 100 MG TABLET (FP) PO SCH (22:08)
[2021-11-20] MEDS: LURASIDONE HCL 40 MG, LURASIDONE HCL 20 MG PO SCH (22:09)
[2021-11-20] MEDS: hydrOXYzine PAMOATE 25 MG CAPSULE (FP) PO PRN (22:10)
[2021-11-20] MEDS: MELATONIN 5 MG TABLETS PO SCH (22:10)
[2021-11-20] MEDS: ALBUTEROL SO4 HFA INHALER IH PRN (22:11)
[2021-11-21] MEDS ORDERED: methaDONE HCL 10 MG TABLET ONE (04:43)
[2021-11-21] MEDS ORDERED: methaDONE HCL 40 MG DISPERSABLE TABLET ONE (04:43)
[2021-11-21] MEDS: NICOTINE 10 MG CARTRIDGE (INHALER) IH PRN ×2 (05:39→09:30)
[2021-11-21] MEDS: busPIRone HCL 5 MG TABLET PO SCH (05:39)
[2021-11-21 08:18] VITALS: BP 103/61; RESP 18; TEMP 97.8
[2021-11-21] MEDS: ALBUTEROL SO4 HFA INHALER IH PRN (09:30)
[2021-11-21] MEDS: PRENATAL VITAMINS W/ FOLIC ACID TABLET (FP) PO SCH (09:30)
[2021-11-21] MEDS: DIVALPROEX SODIUM 500 MG TABLET E.C. PO SCH (09:30)
[2021-11-21] MEDS: NICOTINE 21 MG/24 HOURS TOPICAL PATCH TD SCH (10:37)
== END 2021-11-21 10:45 | disposition home or self-care (01) | DRG 772 ==
LOC: YASAS 09:11 → Y5N 09:16
PROVIDERS: ADMIT Allergy & Immunology; ATTEND Psychiatry & Neurology Psychiatry
PROC: HZ42ZZZ Group Counseling for Substance Abuse Treatment, Cognitive-Behavioral (ICD-10-PCS; principal; 2021-10-30)
DX: F10.20 Alcohol dependence, uncomplicated (principal); F11.20 Opioid dependence, uncomplicated; F14.20 Cocaine dependence, uncomplicated; F17.210 Nicotine dependence, cigarettes, uncomplicated; F31.9 Bipolar disorder, unspecified; J45.909 Unspecified asthma, uncomplicated; N89.8 Other specified noninflammatory disorders of vagina; M54.50 Low back pain, unspecified; G89.29 Other chronic pain; R73.9 Hyperglycemia, unspecified
CPT/HCPCS: 36415; 81003; 82947; 83036; 87086; 87186; 87491; 87591; 87661; 90677